=== PATIENT | female | born 1980 | race Caucasian/White ===

== ENCOUNTER 2018-09-21 11:23 | Emergency (ER) | payer OTHER ==
[2018-09-21] MEDS ORDERED: Sodium Chloride 0.9% 1000 ML 1,000 ML IV STA (11:51)
--- NOTE | 2018-09-21 11:55 | ERPHSYRPT ---
- History of Present Illness Time Seen by Provider: 09/21/18 11:51 Source: patient Exam Limitations: no limitations Patient Subjective Stated Complaint: states this am had sudden onset of left flank pain that was sharp. states it lasted approx an hour and then disappeared. states she called the ambulance to bring her in but by the time they got there the pain was gone. Triage Nursing Assessment: ambulated to room per self. skin w/d, color normal, resp easy. denies any pain at this time. was able to give urine specimen. urine very dark, cloudy. abd soft, nontender. normal bowel sounds. Physician History: 37-year-old white female previously healthy arrives with complaint of pain which was sharp severe located in the left flank and left lower quadrant which began at 9:30 AM lasted an hour and is now resolved. She has no dysuria or hematuria. Past medical history is negative. Past surgical history includes . Timing/Duration: today Severity: moderate Modifying Factors: Improves With: nothing Associated Symptoms: nausea, vomiting, abdominal pain (lleft lower quadrant pain resolved), other (left flank pain) Allergies/Adverse Reactions: No Known Drug Allergies Allergy (Verified 09/21/18 11:57) Home Medications: Xanax 0.5 mg PO DAILY PRN PRN 09/17/11 [History] Hx Tetanus, Diphtheria Vaccination/Date Given: Yes Hx Influenza Vaccination/Date Given: No Hx Pneumococcal Vaccination/Date Given: No - Review of Systems Constitutional: No Fever, No Chills Eyes: No Symptoms Ears, Nose, & Throat: No Symptoms Respiratory: No Cough, No Dyspnea Cardiac: No Chest Pain, No Edema, No Syncope Abdominal/Gastrointestinal: Abdominal Pain (left lower quadrant pain), Nausea, Vomiting, No Diarrhea, No Constipation, No Hematemesis, No Hematochezia, No Melena, No Dysphagia, No Appetite Changes Genitourinary Symptoms: Flank Pain (left flank pain), No Dysuria, No Frequency, No Hematuria, No Hesitancy, No Incontinence, No Urgency, No Urinary Retention, No Menorrhagia, No , No Vaginal Bleeding, No Vaginal Discharge Musculoskeletal: No Back Pain, No Neck Pain Skin: No Rash Neurological: No Dizziness, No Focal Weakness, No Sensory Changes Psychological: No Symptoms Endocrine: No Symptoms All Other Systems: Reviewed and Negative - Past Medical History Pertinent Past Medical History: Yes Psycho-Social History: Anxiety - Past Surgical History Past Surgical History: Yes Female Surgical History: Section - Social History Smoking Status: Current every day smoker How long have you smoked: 20 Exposure to second hand smoke: Yes Drug Use: none Patient Lives Alone: No - Female History Hx Last Menstrual Period: three weeks ago Hx Now: No - Nursing Vital Signs Nursing Vital Signs: Initial Vital Signs Temperature 98.6 F 09/21/18 11:27 Pulse Rate 75 09/21/18 11:27 Respiratory Rate 16 09/21/18 11:27 Blood Pressure 127/82 09/21/18 11:27 O2 Sat by Pulse Oximetry 94 L 09/21/18 11:27 Pain Scale Pain Intensity 0 - Physical Exam General Appearance: no apparent distress, alert Eye Exam: PERRL/EOMI, eyes nml inspection Ears, Nose, Throat Exam: normal ENT inspection, TMs normal, pharynx normal, moist mucous membranes Neck Exam: normal inspection, non-tender, supple, full range of motion Respiratory Exam: normal breath sounds, lungs clear, No respiratory distress Cardiovascular Exam: regular rate/rhythm, normal heart sounds, normal peripheral pulses, capillary refill <2 sec Gastrointestinal/Abdomen Exam: soft, normal bowel sounds, No tenderness, No mass Back Exam: normal inspection, normal range of motion, No CVA tenderness, No vertebral tenderness Extremity Exam: normal inspection, normal range of motion, pelvis stable Neurologic Exam: alert, oriented x 3, cooperative, trim attacher II-XII nml as tested, normal mood/affect, nml cerebellar function, nml station & gait, sensation nml, No motor deficits Skin Exam: normal color, warm, dry, No rash SpO2 Interpretation: normal (94%) SpO2: 94 - Course Nursing assessment & vital signs reviewed: Yes - CT Exams Abdomen/Pelvis CT Interpretation: Discussed w/radiologist (CT abdomen and pelvis: Impression: 1. 2 mm nonobstructing stone within the upper pole of the left kidney representing no change from November 09, 2012. Prior 1 mm stone within the lower pole of the left kidney from November 09, 2012 is no longer seen. No other evidence of renal/ureteral stones or acute obstructive uropathy, particularly on the right. No bladder stone is seen. 2. The gallbladder appears grossly unremarkable by CT criteria. No inflammatory changes within the right lower quadrant to suggest appendicitis. 3. The remainder of the not IV contrast CT of the abdomen and pelvis appear unremarkable.) Ordered Tests: Active Orders 24 hr Category Date Time Status IV Insertion STAT Care 09/21/18 11:51 Active ABDOMEN AND PELVIS W/0 CONTRAS [CT] Stat Exams 09/21/18 12:36 Completed CBC W DIFF Stat Lab 09/21/18 12:05 Completed CMP Stat Lab 09/21/18 12:05 Completed CULTURE,URINE Stat Lab 09/21/18 Received HCG QUALITATIVE,SERUM Stat Lab 09/21/18 12:05 Completed UA W/RFX UR CULTURE Stat Lab 09/21/18 Completed Medication Summary Discontinued Medications Generic Name Dose Route Start Last Admin Trade Name Amy PRN Reason Stop Dose Admin Sodium Chloride 1,000 mls @ 999 mls/hr 09/21/18 11:51 09/21/18 13:17 Sodium Chloride 0.9% 1000 Ml IV 09/21/18 12:51 Infused .Q1H1M STA Infusion Sodium Chloride Confirm 09/21/18 12:05 Sodium Chloride 0.9% 1000 Ml Administered 09/21/18 12:06 Dose 1,000 mls @ ud .ROUTE .STK-MED ONE Lab/Rad Data: Laboratory Result Diagrams 09/21/18 12:05 09/21/18 12:05 Laboratory Results 09/21/18 09/21/18 09/21/18 Range/Units Unknown 12:05 12:05 WBC (4.0-10.5) K/mm3 RBC (4.1-5.4) M/mm3 Hgb (12.0-16.0) gm/dl Hct (35-47) % MCV (78-100) fl MCH (26-32) pg MCHC (32-36) g/dl RDW (11.5-14.0) % Plt Count (150-450) K/mm3 MPV (6-9.5) fl Gran % (36.0-66.0) % Eos # (Auto) (0-0.5) Absolute Lymphs (auto) (1.0-4.6) Absolute Monos (auto) (0.0-1.3) Lymphocytes % (24.0-44.0) % Monocytes % (0.0-12.0) % Eosinophils % (0.00-5.0) % Basophils % (0.0-0.4) % Absolute Granulocytes (1.4-6.9) Basophils # (0-0.4) Sodium 140 (137-145) mmol/L Potassium 4.0 (3.5-5.1) mmol/L Chloride 104 (98-107) mmol/L Carbon Dioxide 25 (22-30) mmol/L Anion Gap 14.8 (5-15) MEQ/L BUN 9 (7-17) mg/dL Creatinine 0.53 (0.52-1.04) mg/dL Estimated GFR > 60.0 ML/MIN Glucose 92 (74-106) mg/dL Calcium 9.4 (8.4-10.2) mg/dL Total Bilirubin 0.50 (0.2-1.3) mg/dL AST 19 (14-36) U/L ALT 11 (0-35) U/L Alkaline Phosphatase 75 (38-126) U/L Serum Total Protein 8.1 (6.3-8.2) g/dL Albumin 4.5 (3.5-5.0) g/dL Serum , Qual NEGATIVE (Negative) Urine Color YELLOW (YELLOW) Urine Appearance CLOUDY (CLEAR) Urine pH 6.0 (5-6) Ur Specific [place] 1.019 (1.005-1.025) Urine Protein 30 (Negative) Urine Ketones NEGATIVE (NEGATIVE) Urine Blood LARGE (0-5) Zia/ul Urine Nitrite NEGATIVE (NEGATIVE) Urine Bilirubin NEGATIVE (NEGATIVE) Urine Urobilinogen NEGATIVE (0-1) mg/dL Ur Leukocyte Esterase NEGATIVE (NEGATIVE) Urine WBC (Auto) 6-10 (0-5) /HPF Urine RBC (Auto) >101 (0-2) /HPF U Epithel Cells (Auto) RARE (FEW) /HPF Urine Bacteria (Auto) RARE (NEGATIVE) /HPF Urine Mucus (Auto) MANY (NEGATIVE) /HPF Urine Culture Reflexed YES (NO) Urine Glucose NEGATIVE (NEGATIVE) mg/dL 09/21/18 Range/Units 12:05 WBC 15.1 H (4.0-10.5) K/mm3 RBC 4.56 (4.1-5.4) M/mm3 Hgb 14.3 (12.0-16.0) gm/dl Hct 42.1 (35-47) % MCV 92.3 (78-100) fl MCH 31.4 (26-32) pg MCHC 34.0 (32-36) g/dl RDW 13.8 (11.5-14.0) % Plt Count 266 (150-450) K/mm3 MPV 10.9 H (6-9.5) fl Gran % 85.6 H (36.0-66.0) % Eos # (Auto) 0.06 (0-0.5) Absolute Lymphs (auto) 1.22 (1.0-4.6) Absolute Monos (auto) 0.87 (0.0-1.3) Lymphocytes % 8.1 L (24.0-44.0) % Monocytes % 5.8 (0.0-12.0) % Eosinophils % 0.4 (0.00-5.0) % Basophils % 0.1 (0.0-0.4) % Absolute Granulocytes 12.90 H (1.4-6.9) Basophils # 0.02 (0-0.4) Sodium (137-145) mmol/L Potassium (3.5-5.1) mmol/L Chloride (98-107) mmol/L Carbon Dioxide (22-30) mmol/L Anion Gap (5-15) MEQ/L BUN (7-17) mg/dL Creatinine (0.52-1.04) mg/dL Estimated GFR ML/MIN Glucose (74-106) mg/dL Calcium (8.4-10.2) mg/dL Total Bilirubin (0.2-1.3) mg/dL AST (14-36) U/L ALT (0-35) U/L Alkaline Phosphatase (38-126) U/L Serum Total Protein (6.3-8.2) g/dL Albumin (3.5-5.0) g/dL Serum , Qual (Negative) Urine Color (YELLOW) Urine Appearance (CLEAR) Urine pH (5-6) Ur Specific [place] (1.005-1.025) Urine Protein (Negative) Urine Ketones (NEGATIVE) Urine Blood (0-5) Zia/ul Urine Nitrite (NEGATIVE) Urine Bilirubin (NEGATIVE) Urine Urobilinogen (0-1) mg/dL Ur Leukocyte Esterase (NEGATIVE) Urine WBC (Auto) (0-5) /HPF Urine RBC (Auto) (0-2) /HPF U Epithel Cells (Auto) (FEW) /HPF Urine Bacteria (Auto) (NEGATIVE) /HPF Urine Mucus (Auto) (NEGATIVE) /HPF Urine Culture Reflexed (NO) Urine Glucose (NEGATIVE) mg/dL - Progress Progress: improved Progress Note: 09/21/18 14:33 37-year-old white female arrives with complaint of left flank pain which was sharp and severe lasting about an hour this morning. She is feeling better now and has not had recurrence of her pain in the emergency room. Patient does have a history of kidney stones she has a single 2 mm stone in the left kidney she has no ureteral stones or obstruction. She does have greater 100 red cells per high-power field in her urine. Patient has received 1 L of normal saline. Will plan to discharge patient. Discharge diagnosis 1 left flank pain. 2 ureteral colic 3. Hematuria 4. History of kidney stones. - Departure Departure Disposition: Home Clinical Impression: Left flank pain, Ureteral colic, History of kidney stones Hematuria Qualifiers: Hematuria type: unspecified type Qualified Code(s): R31.9 - Hematuria, unspecified Condition: Fair Critical Care Time: No Referrals: [facility]LEX[facility] [Primary Care Provider] - Additional Instructions: Return home. Plenty of fluids clear fluids only 24-48 hours if abdominal pain. Advil 2-3 tablets orally every 6 hours as needed for pain. [place] as needed for pain as prescribed. Followup with your family doctor. Return for acute distress or for severe symptoms. Prescriptions: Hydrocodone/APAP 5-325 Tab^^^ [[place] 5-325 Tablet^^^] 2 tab PO Q4HPRN PRN #10 tablet MDD 6 PRN Reason: left flank pain
[2018-09-21] MEDS ORDERED: Sodium Chloride 0.9% 1000 ML 1,000 ML ONE (12:05)
[2018-09-21 12:10] LABS: Appearance CLOUDY (CLEAR); Bacteria RARE /HPF (NEGATIVE); Bilirubin NEGATIVE (NEGATIVE); Blood LARGE Ery/ul (0-5); Epithelial Cells RARE /HPF (FEW); Glucose NEGATIVE (NEGATIVE); Ketones NEGATIVE (NEGATIVE); Leukocyte Esterase NEGATIVE (NEGATIVE); Mucus MANY /HPF (NEGATIVE); Nitrite NEGATIVE (NEGATIVE); Protein,Urine Dip 30 (Negative); Specific Gravity 1.019 (1.005-1.025); Urobilinogen NEGATIVE mg/dL (0-1)
[2018-09-21 12:11] LABS: RBC >101 /HPF (0-2)
[2018-09-21 12:14] LABS: BASOPHIL % 0.1 % (0.0-0.4); Basophil (Absolute #) 0.02 (0-0.4); Eosinophil % 0.4 % (0.00-5.0); Eosinophil (Absolute #) 0.06 (0-0.5); Granulocytes % 85.6 % (36.0-66.0); Hematocrit 42.1 % (35-47); Hemoglobin 14.3 gm/dl (12.0-16.0); Lymphocyte (Absolute #) 1.22 (1.0-4.6); Lymphocytes % 8.1 % (24.0-44.0); Mean Cell Volume 92.3 fl (78-100); Mean Corpuscular Hemoglobin 31.4 pg (26-32); Mean Platelet Volume 10.9 fl (6-9.5); Monocyte (Absolute #) 0.87 (0.0-1.3); Monocytes % 5.8 % (0.0-12.0); Platelet Count 266 K/mm3 (150-450); Red Blood Count 4.56 M/mm3 (4.1-5.4); Red Cell Distribution Width 13.8 % (11.5-14.0); White Blood Count 15.1 K/mm3 (4.0-10.5)
[2018-09-21 12:31] LABS: ALBUMIN 4.5 g/dL (3.5-5.0); ALKALINE PHOSPHATASE 75 U/L (38-126); ANION GAP 14.8 MEQ/L (5-15); BLOOD UREA NITROGEN 9 mg/dL (7-17); CHLORIDE 104 mmol/L (98-107); Calcium 9.4 mg/dL (8.4-10.2); Carbon Dioxide 25 mmol/L (22-30); Creatinine 1 0.53 mg/dL (0.52-1.04); Glucose 92 mg/dL (74-106); SGOT/AST 19 U/L (14-36); SGPT/ALT 11 U/L (0-35); SODIUM 140 mmol/L (137-145); Total Protein 8.1 g/dL (6.3-8.2)
--- NOTE | 2018-09-21 14:29 | XRAY ---
Exam: CT of the abdomen and pelvis without IV contrast from 09/21/2018. Comparison: CT of the abdomen and pelvis without IV contrast from 11/09/2012. Indication: 37-year-old female with right flank pain/abdominal pain and hematuria, no history of prior surgery. Technique: Non-IV contrast axial images were obtained through the abdomen and pelvis. Reconstructed coronal and sagittal images were created and reviewed. Findings: The lung bases appear clear. The liver appears grossly unremarkable on this non-IV contrast study. It is of normal size. The gallbladder is partially distended and reveals no dense calcifications within it. The spleen is of normal size and reveals a small calcified granuloma at its upper lateral margin. The pancreas and adrenal glands appear unremarkable. The kidneys are of unremarkable size. There is a 2 mm punctate nonobstructing stone within the upper pole of the left kidney representing no significant change from 11/09/2012. Prior tiny 1 mm stone at the lower pole of the left kidney on axial image #38 from 11/09/2012 is no longer seen on the current exam. No right renal calculi are seen. Small bilateral extrarenal pelves are seen. I see no hydronephrosis. The ureters appear of normal diameter and reveal no ureterolith. No abdominal aortic aneurysm or abnormal retroperitoneal lymphadenopathy is seen. There is no free intraperitoneal air. The anterior abdominal wall appears intact. There is minimal protrusion of intraperitoneal fat density into the subcutaneous fat at the level of the umbilicus on midline sagittal images #80 and #81. Scattered stool is seen throughout the colon. No bowel obstruction or bowel distention is seen. I see no evidence of appendicitis within the right lower quadrant. The uterus is anteflexed and tilted slightly to the right of midline. The pelvic adnexa appear unremarkable. No enlarged pelvic lymph nodes are seen. There is no free intraperineal fluid. The urinary bladder is distended and reveals no internal calcifications, bladder wall thickening, or mass. The skeleton reveals no acute fracture or aggressive bone lesion. Mild osteoarthritic spurring is seen at the anterior margin of both sacroiliac joints. Minimal vertebral endplate spurring is seen within the lower thoracolumbar spine. I believe there is a Schmorl's node at the anterior aspect of the superior vertebral endplate of T12. Impression: 1. There is a 2 mm nonobstructing stone within the upper pole of the left kidney representing no change from 11/09/2012. Prior 1 mm stone within the lower pole of the left kidney from 11/09/2012 is no longer seen. I see no other evidence of renal/ureteral stones or acute obstructive uropathy, particularly on the right. No bladder stone is seen. 2. The gallbladder appears grossly unremarkable by CT criteria. Also, I see no inflammatory changes within the right lower quadrant to suggest appendicitis. 3. The remainder of the non-IV contrast CT of the abdomen and pelvis appears unremarkable.
[2018-09-21 15:02] VITALS: PULSE 70
[2018-09-21 15:04] VITALS: BP 115/82; O2SAT 97
== END 2018-09-21 15:02 | disposition home or self-care (01) ==
LOC: ED 11:23
DX: R31.9 Hematuria, unspecified (principal); Z87.442 Personal history of urinary calculi
CPT/HCPCS: 36000; 36415; 74176; 80053; 81001; 81025; 85025; 87086; 96360; 99284